=== PATIENT | male | born 1995 | race Caucasian/White ===

== ENCOUNTER 2019-09-25 15:00 | Emergency (ER) | payer BC ==
[2019-09-25 15:11] VITALS: PULSE 96
--- NOTE | 2019-09-25 15:12 | EDM.PDOC ---
ED HPI GENERAL MEDICAL PROBLEM - General Chief Complaint: Skin Complaint Stated Complaint: RASH ALL OVER BODY/SKIN COMPLAINT Time Seen by Provider: 09/25/19 15:12 - History of Present Illness INITIAL COMMENTS - FREE TEXT/NARRATIVE: 23-year-old male presents the emergency room with a rash. This is been going on several days. The patient was exposed to a cat but is unsure if the cat had anything nobody else that was exposed to the cat has developed a rash. The patient noticed this [place] And it is progressively gotten worse it is unsure if he had any other exposures. The patient cannot recall. The rash became significantly worse today. Patient took some Benadryl 50 mg this afternoon around 2:00. That is helping with the itching and the rash is looking a little better with this the patient has not had any breathing difficulties or shortness of breath no swelling in his neck or throat tightness. Past medical history is otherwise unremarkable. - Related Data Allergies Allergy/AdvReac Type Severity Reaction Status Date / Time beeswax Allergy Swelling Verified 05/13/16 13:46 Home Meds: Home Meds predniSONE [Prednisone] 40 mg PO Q24H #10 tablet 09/25/19 [Rx] Past Medical History Cardiovascular History: Reports: Hypertension Social & Family History - Caffeine Use Caffeine Use: Reports: Coffee, Energy Drinks, Soda ED ROS GENERAL - Review of Systems Review Of Systems: See Below Constitutional: Reports: No Symptoms. Denies: Fever, Chills HEENT: Reports: No Symptoms Respiratory: Reports: No Symptoms Cardiovascular: Reports: No Symptoms GI/Abdominal: Reports: No Symptoms Skin: Reports: Rash Neurological: Reports: No Symptoms ED EXAM, SKIN/RASH Exam: See Below Exam Limited By: No Limitations General Appearance: Alert, No Apparent Distress Eye Exam: Bilateral Eye: Normal Inspection Ears: Normal External Exam, Normal Canal, Hearing Grossly Normal, Normal TMs Nose: Normal Inspection, Normal Mucosa, No Blood Throat/Mouth: Normal Inspection, Normal Lips, Normal Teeth, Normal Gums, Normal Oropharynx, Normal Voice, No Airway Compromise Head: Atraumatic, Normocephalic Neck: Normal Inspection, Supple, Non-Tender, Full Range of Motion Respiratory/Chest: No Respiratory Distress, Lungs Clear, Normal Breath Sounds, No Accessory Muscle Use, Chest Non-Tender Cardiovascular: Normal Peripheral Pulses, Regular Rate, Rhythm, No Edema, No Gallop, No JVD, No Murmur, No Rub GI/Abdominal: Normal Bowel Sounds, Soft, Non-Tender Back Exam: Normal Inspection. No: CVA Tenderness (L), CVA Tenderness (R) Extremities: Normal Inspection, No Pedal Edema Neurological: Alert, Oriented, Normal Cognition Skin: Other (Rash probably hives but I am not positive patient states it looks a lot better after taking the Benadryl) Location, Skin: Head, Face, Neck, Chest, Abdomen, Back, Pelvis, Upper Extremity , Right, Upper Extremity, Left, Lower Extremity, Right, Lower Extremity, Left, Generalized. No: Soles Characteristics: Macular, Papular, Confluent, Patchy, Urticarial. No: Vesicular , Bullous Associated features: No: Warmth, Tenderness, Swelling, Induration, Inflammation , Crusting, Rough Lymphatic: No Adenopathy Course - Vital Signs Last Recorded V/S: Last Vital Signs Temp 36.7 C 09/25/19 15:09 Pulse 96 09/25/19 15:09 Resp 18 09/25/19 15:09 BP 144/86 H 09/25/19 15:16 Pulse Ox 99 09/25/19 15:09 - Orders/Labs/Meds Labs: Laboratory Tests 09/25/19 09/25/19 09/25/19 Range/Units 16:36 16:36 16:36 WBC 13.69 H (4.23-9.07) K/mm3 RBC 5.52 (4.63-6.08) M/mm3 Hgb 16.2 (13.7-17.5) gm/dl Hct 47.2 (40.1-51.0) % MCV 85.5 (79.0-92.2) fl MCH 29.3 (25.7-32.2) pg MCHC 34.3 (32.2-35.5) g/dl RDW Std Deviation 44.8 H (35.1-43.9) fL Plt Count 220 (163-337) K/mm3 MPV 8.9 L (9.4-12.3) fl Neut % (Auto) 80.3 H (34.0-67.9) % Lymph % (Auto) 11.0 L (21.8-53.1) % [place] % (Auto) 7.2 (5.3-12.2) % Eos % (Auto) 1.3 (0.8-7.0) Baso % (Auto) 0.1 (0.1-1.2) % Neut # (Auto) 10.98 H (1.78-5.38) K/mm3 Lymph # (Auto) 1.51 (1.32-3.57) K/mm3 [place] # (Auto) 0.99 H (0.30-0.82) K/mm3 Eos # (Auto) 0.18 (0.04-0.54) K/mm3 Baso # (Auto) 0.01 (0.01-0.08) K/mm3 ESR 4 (0-15) mm/hr Sodium 140 (136-145) mEq/L Potassium 4.2 (3.5-5.1) mEq/L Chloride 105 (98-107) mEq/L Carbon Dioxide 25 (21-32) mEq/L Anion Gap 14.2 (5-15) BUN 9 (7-18) mg/dL Creatinine 1.2 (0.7-1.3) mg/dL Est Cr Clr Drug Dosing 109.12 mL/min Estimated GFR (MDRD) > 60 (>60) mL/min BUN/Creatinine Ratio 7.5 L (14-18) Glucose 113 H (74-106) mg/dL Calcium 9.2 (8.5-10.1) mg/dL Total Bilirubin 0.5 (0.2-1.0) mg/dL AST 29 (15-37) U/L ALT 52 (16-63) U/L Alkaline Phosphatase 75 (46-116) U/L C-Reactive Protein 1.5 H* (<1.0) mg/dL Total Protein 7.1 (6.4-8.2) g/dl Albumin 3.9 (3.4-5.0) g/dl Globulin 3.2 gm/dL Albumin/Globulin Ratio 1.2 (1-2) Meds: Medications Discontinued Medications Generic Name Dose Route Start Last Admin Trade Name Freq PRN Reason Stop Dose Admin Famotidine 40 mg 09/25/19 15:22 09/25/19 15:33 Pepcid PO 09/25/19 15:23 40 mg ONETIME ONE Administration Prednisone 60 mg 09/25/19 15:22 09/25/19 15:33 Prednisone PO 09/25/19 15:23 60 mg ONETIME ONE Administration - Re-Assessments/Exams Free Text/Narrative Re-Assessment/Exam: 09/25/19 16:26 Patient is doing no worse other than his hands are really getting painful it is unclear if this is related to his rash the rash has developed on his palmar surfaces. We will go ahead and check some lab work and inflammatory markers he did receive prednisone and famotidine here in the ED so far 09/25/19 18:47 White count slightly elevated probably a stress reaction C-reactive protein is minimally elevated probably more related to his activity he weight lifts every day. Sed rate is normal. He is doing slowly better over time and I do believe this is urticarial reaction. Departure - Departure Time of Disposition: 18:48 Disposition: Home, Self-Care 01 Clinical Impression: Urticaria - Discharge Information Referrals: PCP,None [Primary Care Provider] - Forms: ED Department Discharge Additional Instructions: Return to the emergency room with any questions problems or worsening symptoms.. Take the prednisone, the prescription that was sent to the [facility] 2 pills as close to first thing in the morning as practical take with food. saw superintendent some [id number] Pepcid, or famotidine take 1 twice daily for the next 7 days. Use Benadryl 25 to 50 mg for the next 24 hours and then as needed. Call the hospital clinic for an appointment at the end of this week for recheck [phone] Sepsis Event Note - Evaluation Sepsis Screening Result: No Definite Risk - Focused Exam Vital Signs: Vital Signs Temp Pulse Resp BP Pulse Ox 09/25/19 15:16 144/86 H 09/25/19 15:09 36.7 C 96 18 99 Date Exam was Performed: 09/25/19 Time Exam was Performed: 18:47
[2019-09-25 15:16] VITALS: BP 144/86
[2019-09-25] MEDS ORDERED: predniSONE 20 MG Tab PO ONE (15:22)
[2019-09-25] MEDS ORDERED: Famotidine 20 MG Tab PO ONE (15:22)
== END 2019-09-25 19:05 | disposition home or self-care (01) ==
LOC: JD.ED 15:00
DX: L50.9 Urticaria, unspecified (principal); I10 Essential (primary) hypertension; Z91.030 Bee allergy status; Z79.899 Other long term (current) drug therapy
CPT/HCPCS: 36415; 80053; 85025; 85652; 86140; 99283; A9270; J7512; 99282

== ENCOUNTER 2022-01-10 18:34 | Emergency (ER) | payer BC ==
[2022-01-10 18:49] VITALS: BP 142/74; PULSE 134
[2022-01-10] MEDS ORDERED: LORazepam 2 MG/ML SDV IVPUSH ONE (19:19)
[2022-01-10] MEDS ORDERED: Sodium Chloride 0.9% 1,000 ML IV SCH (19:30)
== END 2022-01-10 20:10 | disposition home or self-care (01) ==
LOC: JD.ED 18:34
DX: R00.0 Tachycardia, unspecified (principal); F12.10 Cannabis abuse, uncomplicated; I10 Essential (primary) hypertension; F17.210 Nicotine dependence, cigarettes, uncomplicated; Z91.030 Bee allergy status
CPT/HCPCS: 93005; 99285